=== PATIENT | male | born 1945 | race Caucasian/White ===

== ENCOUNTER → 2019-09-22 | Outpatient (CLI) | payer MEDICARE, BC ==
[~2019-09-22] MED LIST: ACET325C6 PO; AMLODIPINE BENAZ PO; ASPI-496 PO; HYDR25TA6 PO; IBUP200C8 PO; METR250T18 PO; TRAM50TA2 PO
== END | disposition home or self-care (01) ==
LOC: ROC 08:07
PROVIDERS: ATTEND Radiology Radiation Oncology
DX: C34.12 Malignant neoplasm of upper lobe, left bronchus or lung (principal)
CPT/HCPCS: G0463

== ENCOUNTER → 2019-10-21 | Outpatient (CLI) | payer MEDICARE, BC | END | disposition home or self-care (01) | LOC: EDSTATUS 09-05 19:00 → ROC 08:28 | PROVIDERS: ATTEND Radiology Radiation Oncology | DX: C34.12 Malignant neoplasm of upper lobe, left bronchus or lung (principal); C41.0 Malignant neoplasm of bones of skull and face; Z88.5 Allergy status to narcotic agent; Z88.0 Allergy status to penicillin | CPT/HCPCS: G0463 ==

== ENCOUNTER 2019-10-27 09:44 | Outpatient (CLI) | payer MEDICARE, BC ==
[2019-10-27] MEDS ORDERED: GADOTERATE 10 MMOL/20 ML SYR ONE (11:33)
[2019-11-03] MEDS ORDERED: FLUTICASONE (09:30)
[2019-11-03] MEDS ORDERED: OMEPRAZOLE (09:30)
[2019-11-03] MEDS ORDERED: ZOLPIDEM TARTRATE (09:30)
[2019-11-03] MEDS ORDERED: METOPROLOL SUCCINATE (09:30)
[2019-11-03] MEDS ORDERED: ETOPOSIDE (09:30)
== END 2019-10-27 23:59 | disposition home or self-care (01) ==
LOC: CFH 09:44
PROVIDERS: ATTEND Radiology Radiation Oncology
DX: C34.11 Malignant neoplasm of upper lobe, right bronchus or lung (principal); C79.51 Secondary malignant neoplasm of bone; G31.9 Degenerative disease of nervous system, unspecified; G93.89 Other specified disorders of brain
CPT/HCPCS: 70553; 78815; A9552; A9575

== ENCOUNTER 2019-10-27 11:24 | Outpatient (CLI) | payer BC, MEDICARE, OTHER ==
[2019-11-03] MEDS ORDERED: METOPROLOL SUCCINATE (09:30)
[2019-11-03] MEDS ORDERED: FLUTICASONE (09:30)
[2019-11-03] MEDS ORDERED: OMEPRAZOLE (09:30)
[2019-11-03] MEDS ORDERED: ETOPOSIDE (09:30)
[2019-11-03] MEDS ORDERED: ZOLPIDEM TARTRATE (09:30)
== END 2019-10-27 23:59 | disposition home or self-care (01) ==
LOC: PETCFH 11:24
PROVIDERS: ATTEND Radiology Radiation Oncology
DX: Z02.9 Encounter for administrative examinations, unspecified (principal)
CPT/HCPCS: A9552

== ENCOUNTER 2019-11-03 09:30 | Day surgery (SDC) | payer MEDICARE, BC ==
[~2019-11-03] VITALS: Ht 185.4 cm; Wt 109.5 kg
[2019-11-03 09:30] VITALS: BP 167/93
[~2019-11-03 09:30] MED LIST changes: +BACITRACIN 50,000 UNIT ONE; +BACITRACIN OINT 500U/GM, 15 GM ONE; +BUPIVACAINE/PF 0.5% ONE; +EPINEPHRINE 1 MG/ML, 1ML ONE; +ETOPOSIDE; +FLUTICASONE; +GABAPENTIN 300 MG CAPSULE PO ONE; +LACTATED RINGERS 1,000 ML IV ONE; +METOPROLOL SUCCINATE; +OMEPRAZOLE; +ZOLPIDEM TARTRATE
[2019-11-03 10:29] LABS: ANION GAP 10 mmol/L (5-15); CALCIUM 8.4 mg/dL (8.5-10.1); CHLORIDE 101 mmol/L (98-107); INTERNATIONAL NORMALIZED RATIO 0.99 (0.93-1.1); PROTHROMBIN TIME 10.5 Seconds (9.6-11.5)
[2019-11-03 10:52] LABS: MEAN CORPUSCULAR HEMOGLOBIN 29.1 pg (27.5-34.5); MEAN CORPUSCULAR HGB CONC 33.5 g/dL (33.2-36.2); MEAN PLATELET VOLUME 8.1 fL (7.4-10.4); PLATELET COUNT 149 x10^3/uL (130-400); RED BLOOD COUNT 3.69 x10^6/uL (4.38-5.82); RED CELL DISTRIBUTION WIDTH 16.7 % (9.4-14.8)
[2019-11-03 10:54] LABS: MD YES
[2019-11-03 10:57] LABS: BAND#(MANUAL) 0.04 x10^3/uL; BANDS%(MANUAL) 3 % (0-7); BASOS#(MANUAL) 0.01 x10^3/uL (0-0.1); BASOS% (MANUAL) 1 % (0-1); EOS% (MANUAL) 8 % (1-7); LYMPH#(MANUAL) 0.48 x10^3/uL (1-3.4); LYMPHS% (MANUAL) 37 % (22-44); MONOS#(MANUAL) 0.16 x10^3/uL (0.3-2.7); MONOS% (MANUAL) 12 % (2-9); REACTIVE LYMPHS # (MANUAL) 0.03 x10^3/uL (0-0); REACTIVE LYMPHS % (MANUAL) 2 % (0-0); SEG#(MANUAL) 0.48 x10^3/uL (1.8-6.8); SEGS% (MANUAL) 37 % (42-75)
[2019-11-03 10:58] LABS: ANISOCYTOSIS 1+; OVALOCYTES 1+; POLYCHROMASIA 1+
[2019-11-03 10:59] LABS: <PLATELET ESTIMATE> ADEQUATE; LARGE PLATELETS 1+
[2019-11-03] MEDS ORDERED: PROPOFOL 50 ML ONE (12:21)
[2019-11-03] MEDS ORDERED: BACITRACIN 50,000 UNIT ONE (12:56)
[2019-11-03] MEDS ORDERED: CLINDAMYCIN 150 MG/ML, 6ML ONE (13:17)
[2019-11-03] MEDS ORDERED: BUPIVACAINE/PF 0.5% INFIL ONE (13:36)
[2019-11-03] MEDS ORDERED: BACITRACIN 50,000 UNIT IRRIG ONE (13:38)
[2019-11-03] MEDS ORDERED: ONDANSETRON 2MG/ML, 2ML IV PRN (14:00)
[2019-11-03] MEDS ORDERED: FENTANYL PF 100 MCG/2ML IV PRN (14:00)
[2019-11-03] MEDS ORDERED: MORPHINE SULFATE 4 MG/ML, 1ML IVPush PRN (14:00)
[2019-11-03] MEDS ORDERED: LABETALOL 5MG/ML, 20ML IV PRN (14:00)
[2019-11-03] MEDS ORDERED: OXYcodone 5 MG/5 ML ORAL.SOL UDC PO PRN (14:00)
[2019-11-03] MEDS ORDERED: hydrALAzine 20 MG/ML, 1ML IV PRN (14:00)
[2019-11-03] MEDS ORDERED: HYDROmorphone 2 MG/ML, 1ML IVPush PRN (14:00)
[2019-11-03] MEDS ORDERED: MEPERIDINE/PF 25MG/ML,1ML IVPush PRN (14:00)
== END 2019-11-03 16:20 | disposition home or self-care (01) ==
LOC: OUT 09:30 → EDSTATUS 12:00 → UNDODISIN 16:05 → OUT 16:20
PROVIDERS: ATTEND Neurological Surgery
DX: R93.0 Abnormal findings on diagnostic imaging of skull and head, not elsewhere classified (principal); C79.31 Secondary malignant neoplasm of brain; C34.12 Malignant neoplasm of upper lobe, left bronchus or lung; C79.51 Secondary malignant neoplasm of bone; D61.1 Drug-induced aplastic anemia; D63.8 Anemia in other chronic diseases classified elsewhere; I10 Essential (primary) hypertension; K21.9 Gastro-esophageal reflux disease without esophagitis; Z79.82 Long term (current) use of aspirin; Z79.891 Long term (current) use of opiate analgesic; Z79.01 Long term (current) use of anticoagulants; Z79.899 Other long term (current) drug therapy; Z87.891 Personal history of nicotine dependence; Z88.0 Allergy status to penicillin; Z88.2 Allergy status to sulfonamides; Z88.5 Allergy status to narcotic agent; Z88.8 Allergy status to other drugs, medicaments and biological substances
CPT/HCPCS: 20240; 80048; 85025; 85610; 85730; 88305; 88331; 93005; J0171; J2704

== ENCOUNTER 2019-11-04 07:13 | Outpatient (CLI) | payer BC, MEDICARE, OTHER ==
[~2019-11-04 07:13] MED LIST changes: -BACITRACIN 50,000 UNIT ONE; -BACITRACIN OINT 500U/GM, 15 GM ONE; -BUPIVACAINE/PF 0.5% ONE; -EPINEPHRINE 1 MG/ML, 1ML ONE; -GABAPENTIN 300 MG CAPSULE PO ONE; -LACTATED RINGERS 1,000 ML IV ONE
== END 2019-11-04 23:59 | disposition home or self-care (01) ==
LOC: ROC 07:13
PROVIDERS: ATTEND Radiology Radiation Oncology
DX: Z02.9 Encounter for administrative examinations, unspecified (principal)

== ENCOUNTER → 2019-12-26 | Outpatient (CLI) | payer OTHER | END | disposition home or self-care (01) | LOC: ROC 08:16 | PROVIDERS: ATTEND Radiology Radiation Oncology | DX: C79.51 Secondary malignant neoplasm of bone (principal); C34.12 Malignant neoplasm of upper lobe, left bronchus or lung | CPT/HCPCS: G0463 ==

== ENCOUNTER → 2019-12-30 | Outpatient (CLI) | payer OTHER ==
[~2019-12-30] MED LIST changes: +GADOTERATE 10 MMOL/20 ML SYR ONE
== END | disposition home or self-care (01) ==
LOC: RAD 10:02
PROVIDERS: ATTEND Radiology Radiation Oncology
DX: C79.51 Secondary malignant neoplasm of bone (principal); M25.451 Effusion, right hip; M89.9 Disorder of bone, unspecified; N40.0 Benign prostatic hyperplasia without lower urinary tract symptoms; N43.3 Hydrocele, unspecified
CPT/HCPCS: 73723; A9575